=== PATIENT | female | born 1995 | race Caucasian/White ===

== ENCOUNTER → 2017-01-09 18:23 | Observation (INO) ==
[2017-01-09 15:31] VITALS: BP 130/79
--- NOTE | 2017-01-09 15:55 | OB/GYN Progress Note ---
Date of Encounter: 01/09/17 Time of Encounter: 16:16 - Assessment and Plan (1) 34 weeks gestation of Current Visit: Yes Status: Acute (2) Elevated blood pressure affecting in third trimester, antepartum Current Visit: Yes Status: Acute BP was elevated in [facility]. Current BP 119/70's Vaginal exam fingertip outer os closed inner os Subjective - Subjective Interval history: 34+4 sent from [facility] for evaluation of elevated blood pressure. Pt states she just feels "off" today. Complaints of nausea,occasional upper abdominal pain and tightening.Reports good movement, denies vaginal bleeding or leaking of fluid. Occasional seeing spots yesterday, but none today , no other visual disturbances. Antepartum ROS: movement normal, no loss of fluid, no vaginal bleeding, no contractions Objective - Vital Signs Vital Signs: Vital Signs Temp Pulse Resp BP Pulse Ox 01/09/17 15:23 97.3 F L 100 14 130/79 99 - Exam FHR: auscultation normal FHR comments: baseline 145/moderate/+acels/-decels Auscultation: bilateral: normal Abdomen: Present: normal appearance, soft, gravid Uterus: Present: normal Cervical dilation: 0
[2017-01-09 16:54] LABS: Basophils # 0.1 K/mcL (0.0-0.2); Basophils % 0.3 %; Eosinophils # 0.1 K/mcL (0.0-0.6); Eosinophils % 0.3 %; Hematocrit 32.5 % (35.3-44.9); Immature Granulocytes % 0.7 % (0-4); Lymphocytes # 2.2 K/mcL (0.6-4.6); Lymphocytes % 13.7 %; Mean Corpuscular HGB Conc 33.8 g/dL (31.6-35.5); Mean Corpuscular Hemoglobin 27.8 pg (28.0-33.3); Mean Corpuscular Volume 82.3 fL (83.0-100.0); Mean Platelet Volume 10.8 fL (9.4-12.4); Monocytes % 6.1 %; Neutrophils # 12.4 K/mcL (1.6-8.9); Platelet Count 271 K/mcL (140-400); Red Blood Count 3.95 M/mcL (3.82-4.97); Red Cell Distribution Width 14.1 % (11.5-14.5); Segmented Neutrophils % 78.9 %
[2017-01-09 17:05] LABS: Alanine Aminotransferase 12 Units/L (0-55); Aspartate Amino Transferase 23 Units/L (5-34); BUN/Creatinine Ratio 5 (6-26); Lactate Dehydrogenase 171 Units/L (159-327); Uric Acid 4.5 mg/dL (2.6-6.0); eGFR For African Americans > 60 (> 60); eGFR For Non-African Americans > 60 (> 60)
[2017-01-09 17:08] LABS: Blood Urea Nitrogen 3 mg/dL (7-20)
[2017-01-09 17:42] LABS: Creatinine,Urine 60 mg/dL; Protein/Creatinine Ratio,Urine < 0.12 mg/mg (0-0.20)
== END | disposition home or self-care (01) ==
LOC: 1NENULAB
PROVIDERS: ADMIT Obstetrics & Gynecology; ATTEND Obstetrics & Gynecology

== ENCOUNTER → 2017-02-09 20:05 | Observation (INO) ==
--- NOTE | 2017-02-10 05:37 | OB/GYN Progress Note ---
Date of Encounter: 02/10/17 Time of Encounter: 05:30 - Assessment and Plan (1) and not yet delivered in third trimester Status: Acute (2) 39 weeks gestation of Status: Acute (3) False labor after 37 weeks of gestation without delivery Status: Acute Objective - Vital Signs Vital Signs: Intake and Output 02/09/17 02/09/17 02/10/17 15:59 23:59 07:59 Other: Weight 96 kg
== END | disposition home or self-care (01) ==
LOC: 1NENULAB
PROVIDERS: ADMIT Obstetrics & Gynecology; ATTEND Obstetrics & Gynecology

== ENCOUNTER 2017-02-12 02:06 | Inpatient (IN) ==
[~2017-02-12 02:06] MED LIST: Famotidine 20 MG/2 ML VIAL IVP PRN; Metoclopramide 10 MG/2 ML VIAL IVP PRN; Ringers Solution, Lactated 1,000 ML IVC SCH
[2017-02-12 02:24] LABS: Basophils % 0.3 %; Lymphocytes % 15.3 %; Red Cell Distribution Width 15.5 % (11.5-14.5)
[2017-02-12 02:34] LABS: Eosinophils # 0.1 K/mcL (0.0-0.6); Eosinophils % 0.7 %; Hematocrit 34.3 % (35.3-44.9); Hemoglobin 11.3 g/dL (11.5-15.4); Immature Granulocytes % 0.8 % (0-4); Lymphocytes # 2.2 K/mcL (0.6-4.6); Mean Corpuscular HGB Conc 32.9 g/dL (31.6-35.5); Mean Corpuscular Hemoglobin 26.5 pg (28.0-33.3); Mean Corpuscular Volume 80.3 fL (83.0-100.0); Mean Platelet Volume 11.2 fL (9.4-12.4); Neutrophils # 10.7 K/mcL (1.6-8.9); Platelet Count 240 K/mcL (140-400); Red Blood Count 4.27 M/mcL (3.82-4.97); Segmented Neutrophils % 75.9 %
[2017-02-12] MEDS ORDERED: *HR* Ropivacaine/PF 0.2% 10 ML AMPUL ONE ×4 (03:14→17:34)
[2017-02-12] MEDS ORDERED: *HR* FentaNYL (PF) 100 MCG/2 ML VIAL ONE (03:14)
[2017-02-12] MEDS ORDERED: Epidural Premix (fent/bupiv) 110 ML EP ONE ×3 (03:15→16:21)
[2017-02-12] MEDS ORDERED: EPHEDrine 50 MG/ML VIAL IVP PRN (03:48)
[2017-02-12] MEDS ORDERED: *HR* Ropivacaine/PF 0.2% 10 ML AMPUL EP ONE (03:48)
[2017-02-12] MEDS ORDERED: Ondansetron 4 MG/2 ML VIAL IVP PRN ×4 (03:48→23:31)
[2017-02-12] MEDS ORDERED: *HR* FentaNYL (PF) 100 MCG/2 ML VIAL EP ONE (03:48)
--- NOTE | 2017-02-12 03:51 | Anesthesia Evaluation PreOp ---
Date of Encounter: 02/12/17 Time of Encounter: 03:20 - Past History Planned Operation: vicente Cardiac History: Denies any Significant Hx Pulmonary History: Denies Any Significant HX [facility] History: Denies Any Significant HX Other Medical History: Denies Any Significant HX Anesthesia History: No Prior Anesthetic Complications, Past Anesthesia ( rhinoplasy) : Yes (39 plus 3, ) Alcohol Use: none Drug use: none Medications and Allergies Doxylamine/Pyridoxine HCl [Diclegis Dr 10-10 mg Tablet] 2 tab PO DAILY 02/09/17 [History] Ferrous Sulfate [Iron] 1 tab PO DAILY 02/09/17 [History] Allergies sulfamethoxazole [From Bactrim] Adverse Reaction (Verified 02/12/17 02:43) See Comments trimethoprim [From Bactrim] Adverse Reaction (Verified 02/12/17 02:43) See Comments - Meds/Allergy Pre-op Review Medications Reviewed: Yes Allergies Reviewed: Yes Beta Blockers on Current Med List: No Anesthesia Results - Labs 02/12/17 02:13 Anesthesia Exam O2 Sat Height 1.63 m Height 1.63 m Weight 97.2 kg Weight 97.2 kg Vital Signs Temp Pulse Resp BP 97.3 F L 91 15 132/81 02/12/17 01:59 02/12/17 01:59 02/12/17 01:59 02/12/17 01:59 Height: 64 Weight: 97 - HEENT Pupil (Motor): Pupils equal Mallampati: II Teeth: Normal Oral Opening: Greater than 3 - [facility] LOC: Oriented [facility] Motor: Normal RUE, Normal LUE, Normal RLE, Normal LLE, Normal Face [facility] Sensory: Normal: RUE, LUE, RLE, LLE, Face - Cardiac Rhythm: Regular Murmur: None JVD: No Carotid Bruit: No - Pulmonary Breath Sounds: bilateral Clear Respiratory Effort: Symmetrical Anesthesia Assess/Plan ASA Score: 2 Modified Florala Scale for Level of Consciousness: Anixous, agitated or restless Anesthetic Plan: Regional Monitoring Plan: Standard Monitors
[2017-02-12] MEDS ORDERED: Epidural Premix (fent/bupiv) 110 ML EP SCH (04:00)
--- NOTE | 2017-02-12 06:46 | OB/GYN History & Physical ---
Date of Encounter: 02/12/17 Time of Encounter: 06:40 Assessment and Plan (1) Spontaneous rupture of membranes Current visit: Yes Status: Acute Admit for expectant managment. Epidural when requested. Anticipate . (2) 39 weeks gestation of Current visit: No Status: Acute History of Present Illness Chief complaint: rupture of membranes HPI: Ms. Glass is a 21 year old female 39 week and 3 day who presents with spontaneous rupture of membranes. Her has been complicated by intermittently elevated BP's without diagnosis of preeclampsia, recurrent UTI's , and obesity. She was unable to tolerate glucola and was checking her sugars at home. SHe reports they were normal. She denies vaginal bleeding, blurred vision, headache, emesis, diarrhea, or constipation. She has had constant nausea throughout her . Reports good movement prior to rupture of membranes with slight decrease after and return of movement a few hours after. Labs: negative: GBS, Hep B, HIV, gonorrhea, chlamydia, syphilis immune: Rubella, VZV Blood type: O positive Past Med Surg Social Fam HX - Past Medical History Medical history: no medical history Psychiatric history: anxiety - Social History Smoking Status: Never smoker Smokeless Tobacco Status: No Alcohol use: none Drug use: none - Family History Mother Family Member Ethnicity: Non- Living Status: Still Living Hx Family Cardiac Disorders: Yes (HTN) Hx Family Respiratory Disorders: No Hx Family Cancer: No Hx Family GI Disorders: No Hx Family Genitourinary Disorders: No Hx Family Endocrine Disorder: No Hx Family Musculoskeletal Disorders: No Hx Family Neuromuscular Disorders: No Hx Family Neurologic Disorders: No Hx Family HEENT Disorders: No Hx Family Autoimmune Disorders: No Hx Family Reproductive Disorders: No Hx Family Psychosocial Disorders: No Hx Family Medical Disorders: No Obstetrical History - Pregnancies : 1 Para: 0 Term: 0 : 0 Ab's: 0 Livin Medications and Allergies Doxylamine/Pyridoxine HCl [Diclegis Dr 10-10 mg Tablet] 2 tab PO DAILY 02/09/17 [History] Ferrous Sulfate [Iron] 1 tab PO DAILY 02/09/17 [History] Allergies sulfamethoxazole [From Bactrim] Adverse Reaction (Verified 02/12/17 02:43) See Comments trimethoprim [From Bactrim] Adverse Reaction (Verified 02/12/17 02:43) See Comments Review of System OB - Constitutional Constitutional ROS IM: as per HPI Exam - Vital Signs Vital signs: Initial Vital Signs Temp Pulse Resp BP 97.3 F L 91 15 132/81 02/12/17 01:59 02/12/17 01:59 02/12/17 01:59 02/12/17 01:59 - Constitutional Constitutional: well developed, well nourished, no acute distress, average body habitus - HEENT HEENT: Normocephaly, Mucus Membranes Moist - Lungs Respiratory exam: CTAB - Cardiovascular Cardiovascular exam: RRR, +S1, +S2 - Abdomen Abdomen: Present: bowel sounds normal, gravid, non tender - Extremities Extremities exam: normal capillary refill, pedal edema (1+), warm Results Result Diagrams: 02/12/17 02:13 Abnormal lab results WBC 14.2 K/mcL (4.3-11.1) H 02/12/17 02:13 Hgb 11.3 g/dL (11.5-15.4) L 02/12/17 02:13 Hct 34.3 % (35.3-44.9) L 02/12/17 02:13 MCV 80.3 fL (83.0-100.0) L 02/12/17 02:13 MCH 26.5 pg (28.0-33.3) L 02/12/17 02:13 RDW 15.5 % (11.5-14.5) H 02/12/17 02:13 Neutrophils # 10.7 K/mcL (1.6-8.9) H 02/12/17 02:13 All other labs normal. - VTE Reasons for not Prescribing Prophylaxis: Treatment not Indicated - Low risk for VTE
--- NOTE | 2017-02-12 08:48 | OB Labor Progress Note ---
Date of Encounter: 02/12/17 Time of Encounter: 08:46 Labor Progress Note - Subjective Subjective: Patient doing well. Denies any needs at this time. Discussed POC with patient and patient's family. - Heart Tones Heart Tones: 145 bpm moderate variability +15x15 accels occasional variable noted. - [place]: 1-4 min apart - Interventions Interventions: Patient repositioned. - Plan Plan: Consider augmentation if needed for effective labor pattern.
[2017-02-12] MEDS: Oxytocin 20 units/ LR 1000 mL 20 UNIT/1,000 ML BAG IVC SCH ×2 (09:30→21:31)
[2017-02-12] MEDS ORDERED: Acetaminophen 325 MG TABLET PO PRN ×3 (11:39→23:31)
--- NOTE | 2017-02-12 11:56 | OB Labor Progress Note ---
Date of Encounter: 02/12/17 Time of Encounter: 11:54 Labor Progress Note - Subjective Subjective: Patient reports feeling intermittent pressure. - Cervix Cervix: 9.5/100/-1 - Heart Tones Heart Tones: 135 bpm moderate variability +15x15 accels early decels noted. - [place]: 2-5 min apart - Interventions Interventions: SVE, patient repositioned. - Plan Plan: Will continue labor management.
[2017-02-12] MEDS ORDERED: CeFAZolin Pre 2,000 MG/100 ML 2,000 MG/100 ML BAG IVPB ONE (17:17)
[2017-02-12] MEDS ORDERED: Ringers Solution, Lactated 1,000 ML ONE (17:34)
[2017-02-12] MEDS ORDERED: Chloroprocaine/PF 20 ML VIAL INFILT ONE ×2 (18:17→18:49)
[2017-02-12] MEDS ORDERED: Bupivacaine-MPF 0.25% 10 ML VIAL ONE ×2 (19:15→19:43)
[2017-02-12] MEDS ORDERED: *HR* Morphine Sulfate/PF 5 MG/10 ML AMPUL ONE (19:16)
[2017-02-12] MEDS ORDERED: 0.9 % Sodium Chloride 1,000 ML ONE (19:39)
[2017-02-12] MEDS: *HR* HYDROmorphone (PF) 1 MG/ML SYRINGE IVP PRN ×2 (20:30→21:29)
[2017-02-12] MEDS ORDERED: Naloxone 0.4 MG/ML INJ IVP PRN (23:31)
[2017-02-12] MEDS ORDERED: Sennosides 8.6 MG TABLET PO PRN (23:31)
[2017-02-12] MEDS ORDERED: Rho Immune Globulin 1,500 UNIT SYRINGE IM ONE (23:31)
[2017-02-12] MEDS ORDERED: Simethicone 80 MG TAB.CHEW PO PRN (23:31)
[2017-02-12] MEDS ORDERED: *HR* HYDROmorphone (PF) 1 MG/ML SYRINGE IVP PRN (23:31)
[2017-02-12] MEDS ORDERED: Oxytocin 20 units/ LR 1000 mL 20 UNIT/1,000 ML BAG IVC SCH (23:31)
[2017-02-12] MEDS ORDERED: Metoclopramide 10 MG/2 ML VIAL IVP PRN (23:31)
[2017-02-13] MEDS: *HR* OxyCODONE/APAP 5/325 TABLET PO PRN ×5 (00:17→23:22)
[2017-02-13] MEDS: Ibuprofen 600 MG TABLET PO PRN ×4 (01:10→21:14)
--- NOTE | 2017-02-13 02:54 | OB/GYN Procedure Note ---
Section - Date of procedure: 02/13/17 Preop diagnosis: arrest of descent Post-op diagnosis: same Procedure: primary low transverse Surgeon: Sammy Edwards Estimated blood loss (cc): 500 Anesthesiologist: Toney Pearson Hoop Flaring Machine Operator: Filemon Cooper Anesthesia Type: Epidural Disposition: L&D Recovery Room Specimens: Placenta - (s) A Infant Delivery Date: 02/12/17 Infant Delivery Time: 19:11 Presentation: vertex Position: OP Gender: Male Gram Weight: 3.725 kg at 1 minute: 9 at 5 minutes: 9 Shoulder Dystocia: not encountered Specimens collected: cord blood Placenta: other Cord: 3 umbilical vessels - Narrative Narrative: Patient's 21-year-old female who despite being complete for 4 hours and pushing for 1 hour with no further descent and appeared to be large Decision was made to proceed with primary section. She was aware of operative risks and signed appropriate consent. Description of procedure: Patient was taken operating room where epidural was dosed. She is prepped draped in usual sterile fashion. Bladder was drained of clear urine with Burton catheter. Scalpel was used to make a Pfannenstiel skin incision. This was sharply taken down the rectus fascia. Fascial incision was extended in the midline. Rectus muscles were divided and peritoneum was entered. Bladder blade was placed and bladder flap was developed and lower uterine segment due to the was quite big therefore the rectus muscles were split small. Bladder blade was developed. Scalpel was used to make generous low transverse uterine incision this was extended bluntly bilaterally. Infant was quite low therefore nurses gloved hand was used to push upward from below and infant was delivered from vertex presentation. Was then able to deliver the from vertex presentation. Infant was delivered and cord was clamped and cut and baby was taken to the warm. Placenta was delivered manually without difficulty. Uterine cavity was massaged free. It was noted that the incision extended down low in the right lower uterine segment. This was closed with 0 Vicryl running lock stitch. I did pull upwards on the lower aspect of the incision on the right inserted off. Urine was somewhat blood tinged and would like we thought it was from the infants had been downloaded quite some time. We did retrofilled the bladder was 300 mL of blue saline.. Bladder was intact. Fascia was then closed with 0 Vicryl in running manner. Skin edges reapproximated with 4-0 Vicryl. All sponge and counts are correct patient was taken recovery in good condition.
[2017-02-13 05:10] LABS: Basophils % 0.2 %; Eosinophils % 0.2 %; Hematocrit 29.3 % (35.3-44.9); Immature Granulocytes % 0.6 % (0-4); Lymphocytes # 1.9 K/mcL (0.6-4.6); Lymphocytes % 9.6 %; Mean Corpuscular HGB Conc 32.1 g/dL (31.6-35.5); Mean Corpuscular Hemoglobin 26.1 pg (28.0-33.3); Mean Corpuscular Volume 81.4 fL (83.0-100.0); Monocytes # 1.3 K/mcL (0.0-1.3); Monocytes % 6.7 %; Platelet Count 194 K/mcL (140-400); Red Cell Distribution Width 15.9 % (11.5-14.5); Segmented Neutrophils % 82.7 %
[2017-02-13 05:25] LABS: Hemoglobin 9.4 g/dL (11.5-15.4)
[2017-02-13] MEDS: Prenatal Vit/FA 1 EACH TABLET PO SCH (07:48)
--- NOTE | 2017-02-13 09:57 | OB/GYN Progress Note ---
Date of Encounter: 02/13/17 Time of Encounter: 09:54 - Assessment and Plan (1) S/P section Current Visit: Yes Status: Acute POD #1 section pain control colace additional bowel stimulants prn ferrous sulfate I examined this patient and my medical decision-making was reviewed with the Resident Physician. I agree with the documented findings, disposition and treatment plan as described except to the extent set forth below. Ishmael Mendez CNM Encouraged use of pain control medications and ambulation. Anticipate discharge home on POD 3 or 4. (2) Anemia of the puerperium Current Visit: Yes Status: Acute ferrous sulfate (3) Spontaneous rupture of membranes Current Visit: Yes Status: Acute (4) 39 weeks gestation of Current Visit: No Status: Acute Subjective - Subjective Principal diagnosis: s/p section Interval history: Arpita Glass is a 21 yo female s/p section February 12 at 1911. She states that her pain is intensifying currently. She did not think she could handle sitting upright in bed at 9am this morning. She has not eaten breakfast. She has not been out of bed yet. No flatus. Baby boy is breast feeding well once he latches. Patient reports: pain well controlled (with ibuprofen and oxycodone, patient is very recently uncomfortable), other (has not eaten or been out of bed, moralez in place) : doing well Objective - Vital Signs Latest vital signs: Vital Signs Temp Pulse Pulse Resp BP Pulse Ox 02/13/17 05:24 98.5 F 98 14 116/71 97 02/13/17 01:00 98.6 F 96 18 128/77 98 02/12/17 23:54 98.4 F 100 100 14 126/73 98 02/12/17 23:18 99.2 F 100 100 15 125/78 97 02/12/17 22:40 99.3 F 88 80 16 120/77 95 Intake and Output 02/12/17 02/13/17 02/13/17 23:59 07:59 15:59 Intake Total 1000 / 1000 240 / 240 Output Total 600 / 600 550 / 550 Balance 400 / 400 -310 / -310 Intake: IV Fluids 1000 / 1000 Pitocin 20 unit In 1,000 1000 / 1000 ml @ Per Protocol IVC . Q0M PALLAVI Rx#:[id number] Oral 0 / 0 240 / 240 Output: Catheter 600 / 600 550 / 550 Other: Weight 95.8 kg 95.9 kg Patient Weight 02/13/17 23:59 Weight 95.9 kg - Exam Lungs: bilateral: normal Chest: Normal S1, Normal S2 Extremities: Present: normal Abdomen: Present: normal appearance, soft, tenderness (expected post-op) Incision: Present: dressed (dressing intact and dry) Uterus: Present: firm - Labs Labs: Laboratory Results - last 24 hr 02/13/17 04:56 WBC 19.3 H RBC 3.60 L Hgb 9.4 L D Hct 29.3 L MCV 81.4 L MCH 26.1 L MCHC 32.1 RDW 15.9 H Plt Count 194 MPV 11.0 Immature Gran % 0.6 Seg Neutrophils % 82.7 Lymphocytes % 9.6 Monocytes % 6.7 Eosinophils % 0.2 Basophils % 0.2 Neutrophils # 16.0 H Lymphocytes # 1.9 Monocytes # 1.3 Eosinophils # 0.0 Basophils # 0.0
[2017-02-13] MEDS ORDERED: Lanolin 7 G OINT...G. TP PRN (15:34)
[2017-02-14] MEDS: Ibuprofen 600 MG TABLET PO PRN ×2 (03:41→10:40)
[2017-02-14] MEDS: *HR* OxyCODONE/APAP 5/325 TABLET PO PRN (04:49)
--- NOTE | 2017-02-14 08:19 | Discharge Summary ---
Date of Encounter: 02/14/17 Time of Encounter: 08:09 - Discharge Diagnosis (1) S/P section Priority: Primary Status: Acute (2) Anemia of the puerperium Priority: Secondary Status: Acute (3) Spontaneous rupture of membranes Priority: Secondary Status: Acute (4) 39 weeks gestation of Priority: Secondary Status: Acute - Discharge Medications Prescriptions: OxyCODONE/APAP 5/325 [Percocet 5/325 MG] 1 each PO Q4HR PRN #28 tab PRN Reason: Moderate pain 4-6 Ibuprofen [Motrin] 600 mg PO Q6HR PRN #28 tab PRN Reason: Cramping Breast Pump [BREAST PUMP] 1 each .ROUTE AD #1 each Docusate [Colace] 100 mg PO BID #28 cap Lanolin [Lansinoh] 1 appl TP TID PRN #1 unit PRN Reason: Sore Nipples Mupirocin [Bactroban Oint] 1 appl TP TID PRN #1 unit PRN Reason: Sore Nipples Vit/FA 1 each PO DAILY #60 tab Home Medications: Doxylamine/Pyridoxine HCl [Diclegis Dr 10-10 mg Tablet] 2 tab PO DAILY 02/09/17 [History] Ferrous Sulfate [Iron] 1 tab PO DAILY 02/09/17 [History] Breast Pump [BREAST PUMP] 1 each .ROUTE AD #1 each 02/14/17 [Rx] Docusate [Colace] 100 mg PO BID #28 cap 02/14/17 [Rx] Ibuprofen [Motrin] 600 mg PO Q6HR PRN #28 tab 02/14/17 [Rx] Lanolin [Lansinoh] 1 appl TP TID PRN #1 unit 02/14/17 [Rx] Mupirocin [Bactroban Oint] 1 appl TP TID PRN #1 unit 02/14/17 [Rx] OxyCODONE/APAP 5/325 [Percocet 5/325 MG] 1 each PO Q4HR PRN #28 tab 02/14/17 [Rx ] Vit/FA 1 each PO DAILY #60 tab 02/14/17 [Rx] Allergies/Adverse Reactions: Allergies sulfamethoxazole [From Bactrim] Adverse Reaction (Verified 02/12/17 02:43) See Comments trimethoprim [From Bactrim] Adverse Reaction (Verified 02/12/17 02:43) See Comments Data Procedures and tests throughout hospitalization: Laboratory Tests 02/12/17 02/13/17 02:13 04:56 WBC 14.2 H 19.3 H RBC 4.27 3.60 L Hgb 11.3 L 9.4 L D Hct 34.3 L 29.3 L MCV 80.3 L 81.4 L MCH 26.5 L 26.1 L MCHC 32.9 32.1 RDW 15.5 H 15.9 H Plt Count 240 194 MPV 11.2 11.0 Immature Gran % 0.8 0.6 Seg Neutrophils % 75.9 82.7 Lymphocytes % 15.3 9.6 Monocytes % 7.0 6.7 Eosinophils % 0.7 0.2 Basophils % 0.3 0.2 Neutrophils # 10.7 H 16.0 H Lymphocytes # 2.2 1.9 Monocytes # 1.0 1.3 Eosinophils # 0.1 0.0 Basophils # 0.0 0.0 Date of admission: 02/12/17 02:06 Primary care physician: PCP NONE Discharging clinician: Rita Beckett Anticipated date of discharge: 02/14/17 - Patient Status Disposition: Home, Self-Care Condition: Good Functional capacity at discharge: independent ambulation Overall status at discharge: patient is progressing back to baseline - Discharge Instructions Follow Up With: NONE,PCP [Primary Care Provider] - - Diet and Activity Diet: advance to your usual diet Hospital Course Reason for admission: rupture of membranes Delivery: section complications: none Discharge diagnosis: IUP at term delivered [place] baby: male Hospital course: Arpita Glass is a 21 yo female s/p section February 12 at 1911. She has been out of bed and moving well. She has eaten. No flatus of bowel movement yet, she has been burping. She has taken a break from breast feeding due to her breasts getting open wounds. She would like to try again after they have healed some. She feels ready to go home on the day of discharge. Section - Date of procedure: 02/13/17 Preop diagnosis: arrest of descent Post-op diagnosis: same Procedure: primary low transverse Surgeon: Sammy Edwards Estimated blood loss (cc): 500 Anesthesiologist: Toney Pearson Bleach Boiler Filler: Filemon Cooper Anesthesia Type: Epidural Disposition: L&D Recovery Room Specimens: Placenta - Infant (s) Infant A Infant Delivery Date: 02/12/17 Delivery Time: 19:11 Presentation: vertex Position: OP Gender: Male Gram Weight: 3.725 kg at 1 minute: 9 at 5 minutes: 9 Shoulder Dystocia: not encountered Specimens collected: cord blood Placenta: other Cord: 3 umbilical vessels Stable in and appropriate for discharge OAARS reviewed. Time Attestation: Total time spent providing and/or coordinating discharge services: - VTE Reasons for not Prescribing Prophylaxis: Treatment not Indicated - Low risk for VTE Documentation of Mechanical Device: Intermittent pneumatic compression device Exam - Constitutional Vitals: Temp Pulse Resp BP Pulse Ox 98.4 F 110 14 113/73 96 02/13/17 19:33 02/13/17 19:33 02/13/17 19:33 02/13/17 19:33 02/13/17 19:33 General appearance IM: A&O X 3, no acute distress, answers questions appropriately - Respiratory Respiratory exam: Present: CTAB - Cardiovascular Cardiovascular exam IM: Present: RRR, +S1, +S2 - GI/Abdominal GI/Abdominal exam IM: normal bowel sounds, tenderness (moderate; expected post- op) Incision: dry, intact, dressed - Uterine Tone: Firm Uterus Position: 2 Fingers Below Umbilicus - Extremities Exam Extremities exam IM: Present: normal capillary refill, normal inspection. Absent: pedal edema - Psychiatric Additional comments: reports good mood.
[2017-02-14 08:51] VITALS: BP 103/68
[2017-02-14] MEDS: Prenatal Vit/FA 1 EACH TABLET PO SCH (08:56)
== END 2017-02-14 14:35 | disposition home or self-care (01) | DRG 540 ==
LOC: 1NENULAB → 1NENUOBS 22:42
PROVIDERS: ADMIT Registered Nurse; ATTEND Registered Nurse

== ENCOUNTER → 2020-03-13 15:07 | Observation (INO) ==
[2020-03-13 14:07] LABS: Bilirubin,Urine Negative (Negative); Blood,Urine Large (Negative); Clarity,Urine Ex.Turbid (Clear); Color,Urine Brown (Yellow); Glucose,Urine (UA) Normal (Normal); Ketones,Urine Negative (Negative); Leukocyte Esterase,Urine Moderate (Negative); Nitrite,Urine Negative (Negative); Protein,Urine 30 mg/dL (Neg-Trace); Specific Gravity,Urine 1.014 (1.010-1.025); Urobilinogen,Urine Normal (Normal)
[2020-03-13 14:15] LABS: Bacteria,Urine Moderate per hpf (None-Few); RBC,Urine 50-100 per hpf (0-3); WBC,Urine 0-3 per hpf (0-3)
[~2020-03-13 15:07] MED LIST changes: +EPHEDrine 50 MG/ML VIAL IVP PRN; +Epidural Premix (fent/bupiv) 110 ML EP SCH; -Famotidine 20 MG/2 ML VIAL IVP PRN; -Metoclopramide 10 MG/2 ML VIAL IVP PRN; +Ringers Solution, Lactated 1,000 ML IVC ONE
== END | disposition home or self-care (01) ==
LOC: 1NENULAB
PROVIDERS: ADMIT Obstetrics & Gynecology; ATTEND Obstetrics & Gynecology

== ENCOUNTER 2020-06-17 05:49 | Inpatient (IN) ==
[2020-06-17] MEDS ORDERED: Naloxone 0.4 MG/ML INJ IVP PRN (05:53)
[2020-06-17] MEDS ORDERED: Azithromycin 500 MG in 0.9 % Sodium Chloride 250 ML IVPB ONE (05:53)
[2020-06-17] MEDS ORDERED: Famotidine 20 MG/2 ML VIAL IVP ONE (05:53)
[2020-06-17] MEDS ORDERED: CeFAZolin 2,000 MG/50 ML BAG IVPB ONE (05:53)
[2020-06-17] MEDS ORDERED: Metoclopramide 10 MG/2 ML VIAL IVP ONE (05:53)
[2020-06-17] MEDS ORDERED: Ringers Solution, Lactated 1,000 ML ONE ×3 (06:01→09:34)
[2020-06-17] MEDS: Ringers Solution, Lactated 1,000 ML IVC SCH ×2 (06:45→08:10)
[2020-06-17 07:33] LABS: Basophils % 0.3 %; Eosinophils # 0.1 K/mcL (0.0-0.6); Eosinophils % 0.5 %; Hematocrit 35.3 % (35.3-44.9); Immature Granulocytes % 0.7 % (0-4); Lymphocytes # 1.2 K/mcL (0.6-4.6); Lymphocytes % 10.8 %; Mean Corpuscular HGB Conc 31.2 g/dL (31.6-35.5); Mean Corpuscular Hemoglobin 24.2 pg (28.0-33.3); Mean Corpuscular Volume 77.8 fL (83.0-100.0); Mean Platelet Volume 11.8 fL (9.4-12.4); Monocytes # 0.6 K/mcL (0.0-1.3); Neutrophils # 8.7 K/mcL (1.6-8.9); Platelet Count 221 K/mcL (140-400); Red Blood Count 4.54 M/mcL (3.82-4.97); Red Cell Distribution Width 15.6 % (11.5-14.5); Segmented Neutrophils % 81.7 %; White Blood Count 10.6 K/mcL (4.3-11.1)
[2020-06-17] MEDS ORDERED: *HR* Morphine Sulfate/PF 10 MG/10 ML AMPUL ONE (07:39)
[2020-06-17] MEDS ORDERED: *HR* FentaNYL (PF) 100 MCG/2 ML VIAL ONE (07:40)
[2020-06-17] MEDS ORDERED: *HR* Midazolam HCl 2 MG/2 ML VIAL ONE (07:40)
[2020-06-17] MEDS ORDERED: *HR* Oxytocin 10 UNIT/ML VIAL IM ONE (07:40)
[2020-06-17] MEDS ORDERED: Acetaminophen IV 1,000 MG/100 ML INFUS..BTL ONE (07:40)
[2020-06-17] MEDS ORDERED: EPHEDrine 50 MG/ML VIAL ONE (07:40)
[2020-06-17] MEDS ORDERED: Ondansetron 4 MG/2 ML VIAL ONE (07:40)
[2020-06-17] MEDS ORDERED: Bupivacaine/PF 0.75% in Dex 2 ML AMPUL INFILT ONE (08:06)
[2020-06-17] MEDS ORDERED: Lidocaine -MPF 2% 5 ML VIAL ONE (08:07)
[2020-06-17] MEDS ORDERED: Dexamethasone 4 MG/ML VIAL ONE (08:14)
[2020-06-17] MEDS ORDERED: *HR* HYDROMORPHONE 2 MG/ML VIAL ONE (10:15)
[2020-06-17] MEDS: Oxytocin 20 units/ LR 1000 mL 20 UNIT/1,000 ML BAG IVC SCH ×2 (12:06→20:05)
[2020-06-17] MEDS ORDERED: Ondansetron 4 MG/2 ML VIAL IVP PRN (12:34)
[2020-06-17] MEDS ORDERED: Sennosides 8.6 MG TABLET PO PRN (12:34)
[2020-06-17] MEDS ORDERED: Acetaminophen IV 1,000 MG/100 ML INFUS..BTL IVPB ONE (12:34)
[2020-06-17] MEDS ORDERED: Simethicone 80 MG TAB.CHEW PO PRN (12:34)
[2020-06-17] MEDS ORDERED: Metoclopramide 10 MG/2 ML VIAL IVP PRN (12:34)
[2020-06-17] MEDS ORDERED: Rho Immune Globulin 1,500 UNIT SYRINGE IM ONE (12:34)
[2020-06-17] MEDS ORDERED: Acetaminophen 325 MG TABLET PO PRN (12:34)
[2020-06-17] MEDS: *HR* OxyCODONE Immed Rel 5 MG TABLET PO PRN ×2 (13:45→20:04)
[2020-06-17] MEDS: metroNIDAZOLE 500 MG TABLET PO SCH ×2 (15:08→20:05)
[2020-06-17 16:34] LABS: Benzodiazepines Screen,Urine Positive ng/mL (Cutoff=200)
[2020-06-17 16:35] LABS: Amphetamine Screen,Urine Negative ng/mL (Cutoff=1000); Barbiturate Screen,Urine Negative ng/mL (Cutoff=200); Cannabinoid Screen,Urine Negative ng/mL (Cutoff = 50); Cocaine Screen,Urine Negative ng/mL (Cutoff= 300); Opiate Screen,Urine Positive ng/mL (Cutoff=300); Phencyclidine Screen,Urine Negative ng/mL (Cutoff=25)
[2020-06-17] MEDS ORDERED: *HR* Enoxaparin 60 MG/0.6 ML SYRINGE SQ SCH (22:00)
[2020-06-18] MEDS: *HR* OxyCODONE Immed Rel 5 MG TABLET PO PRN ×4 (00:24→18:32)
[2020-06-18] MEDS: Acetaminophen 325 MG TABLET PO PRN ×3 (02:27→20:12)
[2020-06-18] MEDS: Oxytocin 20 units/ LR 1000 mL 20 UNIT/1,000 ML BAG IVC SCH (04:03)
[2020-06-18 07:07] LABS: Basophils % 0.3 %; Eosinophils % 0.2 %; Hematocrit 25.1 % (35.3-44.9); Immature Granulocytes % 0.6 % (0-4); Mean Corpuscular HGB Conc 30.7 g/dL (31.6-35.5); Mean Corpuscular Hemoglobin 24.4 pg (28.0-33.3); Mean Corpuscular Volume 79.7 fL (83.0-100.0); Mean Platelet Volume 11.4 fL (9.4-12.4); Monocytes # 0.9 K/mcL (0.0-1.3); Monocytes % 7.9 %; Neutrophils # 7.9 K/mcL (1.6-8.9); Platelet Count 164 K/mcL (140-400); Red Blood Count 3.15 M/mcL (3.82-4.97); Red Cell Distribution Width 15.8 % (11.5-14.5); White Blood Count 10.8 K/mcL (4.3-11.1)
[2020-06-18 07:08] LABS: Hemoglobin 7.7 g/dL (11.5-15.4)
[2020-06-18] MEDS: metroNIDAZOLE 500 MG TABLET PO SCH ×3 (08:42→20:12)
[2020-06-18] MEDS: Azithromycin 250 MG TABLET PO SCH (08:42)
[2020-06-18] MEDS: Prenatal Vit/FA 1 EACH TABLET PO SCH (08:42)
[2020-06-18] MEDS: *HR* Enoxaparin 60 MG/0.6 ML SYRINGE SQ SCH ×2 (08:44→22:25)
[2020-06-18] MEDS: Ibuprofen 600 MG TABLET PO PRN ×3 (10:00→22:28)
[2020-06-19] MEDS: *HR* OxyCODONE Immed Rel 5 MG TABLET PO PRN ×3 (02:12→11:41)
[2020-06-19] MEDS: Acetaminophen 325 MG TABLET PO PRN (02:12)
[2020-06-19] MEDS: Ibuprofen 600 MG TABLET PO PRN (04:25)
[2020-06-19 04:27] VITALS: BP 108/72
[2020-06-19] MEDS: Azithromycin 250 MG TABLET PO SCH (08:02)
[2020-06-19] MEDS: metroNIDAZOLE 500 MG TABLET PO SCH (08:02)
[2020-06-19] MEDS: Prenatal Vit/FA 1 EACH TABLET PO SCH (08:03)
[2020-06-19] MEDS: *HR* Enoxaparin 60 MG/0.6 ML SYRINGE SQ SCH (10:43)
[2020-06-19] MEDS ORDERED: Bisacodyl 10 MG RECTAL SUPPOSITORY RC PRN (11:40)
[2020-06-19] MEDS ORDERED: MOM Conc 10 ML UD.LIQ PO ONE (11:40)
== END 2020-06-19 14:50 | disposition home or self-care (01) | DRG 786 ==
LOC: 1NENULAB 05:49 → 1NENUOBS 12:02
PROVIDERS: ADMIT Obstetrics & Gynecology; ATTEND Obstetrics & Gynecology

== ENCOUNTER 2020-10-20 20:38 | Inpatient (IN) ==
[2020-10-20 21:12] LABS: Bilirubin,Urine Negative (Negative); Blood,Urine Moderate (Negative); Clarity,Urine Turbid (Clear); Color,Urine Light-Yellow (Yellow); Glucose,Urine (UA) Normal (Normal); Ketones,Urine Negative (Negative); Leukocyte Esterase,Urine Large (Negative); Mucus,Urine Few per lpf (None-Few); Nitrite,Urine Negative (Negative); Protein,Urine 200 mg/dL (Neg-Trace); RBC,Urine 50-100 per hpf (0-3); Specific Gravity,Urine 1.018 (1.010-1.025); Squamous Epithelial Cell,Urine Moderate per hpf (None-Few); Urobilinogen,Urine Normal (Normal); WBC,Urine TNTC per hpf (0-3)
[2020-10-20 21:17] LABS: Basophils # 0.1 K/mcL (0.0-0.2); Basophils % 0.4 %; Eosinophils % 0.1 %; Hematocrit 38.3 % (35.3-44.9); Immature Granulocytes % 0.4 % (0-4); Lymphocytes # 0.9 K/mcL (0.6-4.6); Lymphocytes % 4.8 %; Mean Corpuscular HGB Conc 31.3 g/dL (31.6-35.5); Mean Corpuscular Hemoglobin 24.6 pg (28.0-33.3); Mean Corpuscular Volume 78.5 fL (83.0-100.0); Mean Platelet Volume 10.7 fL (9.4-12.4); Monocytes # 1.7 K/mcL (0.0-1.3); Neutrophils # 15.6 K/mcL (1.6-8.9); Platelet Count 284 K/mcL (140-400); Red Blood Count 4.88 M/mcL (3.82-4.97); Red Cell Distribution Width 15.3 % (11.5-14.5); Segmented Neutrophils % 85.3 %; White Blood Count 18.3 K/mcL (4.3-11.1)
[2020-10-20 21:37] LABS: Alanine Aminotransferase 18 Units/L (7-52); Albumin/Globulin Ratio 1.1 (1.1-2.2); Alkaline Phosphatase 112 Units/L (34-104); Aspartate Amino Transferase 16 Units/L (13-39); BUN/Creatinine Ratio 8 (6-26); Bilirubin,Indirect 0.6 mg/dL (0.0-1.0); Bilirubin,Total 0.6 mg/dL (0.3-1.0); Blood Urea Nitrogen 8 mg/dL (6-20); Calcium 9.1 mg/dL (8.6-10.3); Carbon Dioxide 24 mEq/L (23-29); Chloride 104 mEq/L (98-107); Globulin 3.6 g/dL (2.4-3.5); Glucose 112 mg/dL (70-105); Lipase 13 Units/L (11-82); Osmolality,Calculated 281 (280-300); Sodium 136 mEq/L (136-145); Total Protein 7.6 g/dL (6.4-8.9); eGFR For African Americans > 60 (> 60); eGFR For Non-African Americans > 60 (> 60)
[2020-10-20] MEDS ORDERED: Isovue-370 500 ML BOTTLE IVP ONE (22:06)
[2020-10-20] MEDS ORDERED: 0.9 % Sodium Chloride 1,000 ML IVC ONE ×2 (22:07→22:22)
[2020-10-20] MEDS ORDERED: cefTRIAXone 1,000 MG in 0.9 % Sodium Chloride Mini Bag 100 ML IVPB ONE (22:22)
[2020-10-21] MEDS ORDERED: Ondansetron 4 MG/2 ML VIAL IVP PRN (00:25)
[2020-10-21] MEDS ORDERED: Naloxone 0.4 MG/ML INJ IVP PRN (00:25)
[2020-10-21] MEDS ORDERED: 0.9 % Sodium Chloride 1,000 ML ONE (00:39)
[2020-10-21] MEDS: 0.9 % Sodium Chloride 1,000 ML IVC SCH ×2 (00:45→07:18)
[2020-10-21 06:00] LABS: Basophils % 0.3 %; Eosinophils % 0.2 %; Hematocrit 37.5 % (35.3-44.9); Hemoglobin 11.4 g/dL (11.5-15.4); Immature Granulocytes % 0.3 % (0-4); Lymphocytes # 1.4 K/mcL (0.6-4.6); Lymphocytes % 9.8 %; Mean Corpuscular HGB Conc 30.4 g/dL (31.6-35.5); Mean Corpuscular Hemoglobin 24.8 pg (28.0-33.3); Mean Corpuscular Volume 81.5 fL (83.0-100.0); Mean Platelet Volume 10.8 fL (9.4-12.4); Monocytes # 1.4 K/mcL (0.0-1.3); Monocytes % 9.6 %; Neutrophils # 11.7 K/mcL (1.6-8.9); Platelet Count 224 K/mcL (140-400); Red Cell Distribution Width 15.3 % (11.5-14.5); Segmented Neutrophils % 79.8 %; White Blood Count 14.7 K/mcL (4.3-11.1)
[2020-10-21 06:15] LABS: INR 1.2; Prothrombin Time 13.9 Seconds (9.4-12.1)
[2020-10-21 06:39] LABS: BUN/Creatinine Ratio 10 (6-26); Blood Urea Nitrogen 8 mg/dL (6-20); Calcium 8.8 mg/dL (8.6-10.3); Carbon Dioxide 24 mEq/L (23-29); Chloride 112 mEq/L (98-107); Glucose 97 mg/dL (70-105); Magnesium 2.1 mg/dL (1.6-2.6); Osmolality,Calculated 290 (280-300); Potassium 3.8 mEq/L (3.5-5.1); Sodium 141 mEq/L (136-145); eGFR For African Americans > 60 (> 60); eGFR For Non-African Americans > 60 (> 60)
[2020-10-21] MEDS: Acetaminophen 325 MG TABLET PO PRN ×2 (07:46→19:28)
[2020-10-21] MEDS: Ibuprofen 600 MG TABLET PO PRN ×2 (08:48→17:49)
[2020-10-21] MEDS: cefTRIAXone 2,000 MG in 0.9 % Sodium Chloride Mini Bag 100 ML IVPB SCH (19:29)
[2020-10-21] MEDS ORDERED: 0.9 % Sodium Chloride 1,000 ML IVC SCH (20:45)
[2020-10-21] MEDS: BuPROPion XL (24 HR) 150 MG TABLET PO SCH (22:03)
[2020-10-22 03:47] LABS: Basophils # 0.1 K/mcL (0.0-0.2); Basophils % 0.4 %; Eosinophils # 0.1 K/mcL (0.0-0.6); Eosinophils % 0.8 %; Hematocrit 34.7 % (35.3-44.9); Hemoglobin 10.5 g/dL (11.5-15.4); Immature Granulocytes % 0.4 % (0-4); Lymphocytes # 1.5 K/mcL (0.6-4.6); Lymphocytes % 12.7 %; Mean Corpuscular HGB Conc 30.3 g/dL (31.6-35.5); Mean Corpuscular Hemoglobin 24.4 pg (28.0-33.3); Mean Corpuscular Volume 80.5 fL (83.0-100.0); Mean Platelet Volume 11.3 fL (9.4-12.4); Monocytes # 1.4 K/mcL (0.0-1.3); Monocytes % 11.6 %; Neutrophils # 8.8 K/mcL (1.6-8.9); Platelet Count 195 K/mcL (140-400); Red Blood Count 4.31 M/mcL (3.82-4.97); Red Cell Distribution Width 15.4 % (11.5-14.5); Segmented Neutrophils % 74.1 %; White Blood Count 11.9 K/mcL (4.3-11.1)
[2020-10-22 04:04] LABS: BUN/Creatinine Ratio 9 (6-26); Blood Urea Nitrogen 7 mg/dL (6-20); Calcium 8.6 mg/dL (8.6-10.3); Carbon Dioxide 24 mEq/L (23-29); Chloride 112 mEq/L (98-107); Glucose 103 mg/dL (70-105); Osmolality,Calculated 292 (280-300); Potassium 3.8 mEq/L (3.5-5.1); Sodium 142 mEq/L (136-145); eGFR For African Americans > 60 (> 60); eGFR For Non-African Americans > 60 (> 60)
[2020-10-22] MEDS ORDERED: BuPROPion XL (24 HR) 150 MG TABLET PO SCH (09:00)
[2020-10-22] MEDS: BuPROPion XL (24 HR) 150 MG TABLET PO SCH (20:15)
[2020-10-22] MEDS: cefTRIAXone 2,000 MG in 0.9 % Sodium Chloride Mini Bag 100 ML IVPB SCH (20:17)
[2020-10-23 01:59] LABS: Basophils # 0.1 K/mcL (0.0-0.2); Basophils % 0.5 %; Eosinophils # 0.2 K/mcL (0.0-0.6); Eosinophils % 1.6 %; Hematocrit 34.6 % (35.3-44.9); Hemoglobin 10.4 g/dL (11.5-15.4); Immature Granulocytes % 0.3 % (0-4); Lymphocytes # 2.1 K/mcL (0.6-4.6); Lymphocytes % 17.8 %; Mean Corpuscular HGB Conc 30.1 g/dL (31.6-35.5); Mean Corpuscular Hemoglobin 23.8 pg (28.0-33.3); Mean Corpuscular Volume 79.2 fL (83.0-100.0); Mean Platelet Volume 11.3 fL (9.4-12.4); Monocytes # 1.2 K/mcL (0.0-1.3); Monocytes % 10.4 %; Neutrophils # 8.2 K/mcL (1.6-8.9); Platelet Count 251 K/mcL (140-400); Red Blood Count 4.37 M/mcL (3.82-4.97); Red Cell Distribution Width 15.3 % (11.5-14.5); Segmented Neutrophils % 69.4 %; White Blood Count 11.7 K/mcL (4.3-11.1)
[2020-10-23 02:17] LABS: BUN/Creatinine Ratio 10 (6-26); Blood Urea Nitrogen 8 mg/dL (6-20); Carbon Dioxide 23 mEq/L (23-29); Chloride 108 mEq/L (98-107); Glucose 90 mg/dL (70-105); Magnesium 1.9 mg/dL (1.6-2.6); Osmolality,Calculated 286 (280-300); Sodium 139 mEq/L (136-145); eGFR For African Americans > 60 (> 60); eGFR For Non-African Americans > 60 (> 60)
[2020-10-23 02:24] LABS: % Iron Saturation 5 % (15-50); Iron 12 mcg/dL (50-170); Transferrin 184 mg/dL (203-362)
[2020-10-23 02:38] LABS: Ferritin 129 ng/mL (10-120)
[2020-10-23 02:43] LABS: Folate 6.4 ng/mL (3.0-16.0)
[2020-10-23] MEDS ORDERED: Cyanocobalamin (B-12) 1,000 MCG/ML VIAL SQ ONE (07:36)
[2020-10-23 08:01] VITALS: BP 126/80
== END 2020-10-23 10:50 | disposition home or self-care (01) | DRG 872 ==
LOC: 2ANU 20:38 → EMEROOARM 20:38 → SUATTDRO 23:37 → 2ANU 10-21 00:10
PROVIDERS: ADMIT Internal Medicine; ATTEND Pharmacist